=== PATIENT | female | born 1960 | race Caucasian/White ===

== ENCOUNTER → 2016-07-30 | Outpatient (CLI) | payer MEDICARE ==
[~2016-07-30] MED LIST: ALBUTEROL2.5 MG/NEB INH; CELEXA40 MG PO; GABAPENTIN 400400 MG PO; IBUPROFEN400 MG PO; LORTAB 5/3251 TAB PO; MEDROL 4MG. DOSE4 MG PO; MEGESTROL PO; NORCO 325 MG-51 TAB PO; OMEPRAZOLE40 MG PO; SYMBICORT1 AE1 IH; TIZANIDINE HCL 44 MG PO; TRAMADOL 50MG T50 M1 PO; TRAZODONE150 MG PO; WELLBUTRIN 100100 MG PO; Xanax0.25 MG PO; ZITHROMAX Z PA250 MG PO
--- NOTE | 2016-07-30 11:00 | RADIOLOGY REPORT PS360 ---
KNEE-3 VIEWS-LT HISTORY: LEFT KNEE PAIN ORDERING PHYSICIAN: Yehuda Haskins MD PATIENT AGE: 55 years COMPARISON: None FINDINGS: No fracture or dislocation. No lytic or blastic change. Normal mineralization. There is decrease in the joint space medially with mild osteophyte formation along the medial and lateral compartment. No other significant findings IMPRESSION: Mild osteoarthritis of the medial and lateral compartment of the left knee
== END ==
LOC: LAB 10:14
DX: R63.4 Abnormal weight loss (principal); M25.562 Pain in left knee

== ENCOUNTER → 2016-08-05 | Outpatient (CLI) | payer MEDICARE ==
--- NOTE | 2016-08-06 05:41 | RADIOLOGY REPORT PS360 ---
CT CHEST W/O CONTRAST HISTORY: Chest pain with obstructive chronic bronchitis and abnormal chest x-ray., Follow-up abnormal chest CT, right chest pain, rib pain ABNORMAL CXR ORDERING PHYSICIAN: Yehuda Hasknis MD PATIENT AGE: 55 years TECHNIQUE: Helical acquisition obtainedwithout contrast. Axial, sagittal, and coronal reformatted images are generated and reviewed. Three-D reformatted images also performed of the ribs COMPARISON: 01/18/1716 FINDINGS: There are severe centrilobular emphysematous changes as previously described with scattered areas of parenchymal fibrosis. No mediastinal or hilar mass evident. There is mild thickening of the pericardium anteriorly. Multiple calcified mediastinal and hilar lymph nodes are present as before as well and is calcified granulomas. Hyperinflation with attenuation of the peripheral pulmonary vessels and bronchial thickening consistent with obstructive chronic bronchitis. Peripheral parenchymal opacity is present in the right upper lobe anteriorly and medially measuring 12 x 9 mm and is somewhat more prominent probably related to ongoing pulmonary fibrotic change. Continued follow-up recommended. Best seen on image 25 series 3. Irregular pleural-based parenchymal opacity also noted in the left upper lobe anteriorly and medially also slightly more prominent. The margins of this area are slightly irregular. This measures 13 x 8 mm. Previously noted irregular parenchymal opacity in the right upper lobe laterally is unchanged No infiltrates or effusions. No displaced rib fractures. No lytic or blastic lesions. Upper abdominal images are unremarkable. There are degenerative changes in thoracic spine with mild kyphosis inferiorly unchanged. IMPRESSION: 1. Severe obstructive chronic bronchitis with emphysema and scattered areas of parenchymal scarring. 2. There are least 2 parenchymal opacities one in the in the right upper lobe and one in the left upper lobe both of which are medial and subpleural which are more prominent on today's exam probably related to ongoing pulmonary fibrotic change. PET/CT may confirm. If that is not performed then, with at least recommend a short-term CT follow-up in 3 months.
== END ==
LOC: RAD 14:15
DX: R91.8 Other nonspecific abnormal finding of lung field (principal)

== ENCOUNTER → 2016-08-14 | Outpatient (CLI) | payer MEDICARE ==
[2016-08-14 15:36] LABS: AMPHETAMINES/METAMPHETAMINES NEGATIVE ng/mL (<1000)
== END ==
LOC: LAB 13:39
PROVIDERS: Emergency Medicine
DX: Z79.899 Other long term (current) drug therapy (principal)

== ENCOUNTER → 2017-01-14 | Outpatient (CLI) | payer MEDICARE ==
[~2017-01-14] MED LIST changes: +ALPRAZOLAM0.5 MG PO; +APAP/HYDROCODON1 T10 PO; +CENTRUM SILVER1 EACH PO; +CYANOCOBAL1000 MCG/2 IJ; +ESCITALOPRAM 2020 MG PO; +KEFLEX 500MG.500 MG PO; +MEGACE LIQUI40 MG/ML PO; +PERCOCET1 TAB PO; +SEROQUEL 25MG T25 MG PO; +TYLENOL W/CODEI1 TA2 PO; +XALATAN 0.005%2.5 M1 OP
--- NOTE | 2017-01-16 05:39 | RADIOLOGY REPORT PS360 ---
MRI-L-SPINE W/O, MRI-3D RENDERING/MYELOGRAM HISTORY: Low back pain with bilateral leg pain and numbness and tingling LOW BACK PAIN ORDERING PHYSICIAN: LESLEY CURRY PATIENT AGE: 56 years COMPARISON: MRI 01/01/2016 TECHNIQUE: Standard multiplanar multiecho sequences are performed without contrast. 3-D MIP and myelographic images are also rendered and reviewed FINDINGS: There is normal alignment. Spinal cord ends at the T12-L1 level. T11-T12, T12-L1, L1-L2: Mild degenerative disc disease with some minimal endplate irregularity/Schmorl's nodes. L2-L3: Unremarkable. L3-L4: Mild facet and ligamentum flavum hypertrophy with mild bilateral lateral recess narrowing slightly greater on the right and mild bilateral foraminal narrowing along with mild bulging disc and borderline canal stenosis. L4-5: Mild bulging disc with Facet and ligamentum flavum hypertrophy with mild bilateral lateral recess narrowing and borderline canal stenosis. L5-S1: Unremarkable. No disc herniation. No significant change from the previous exam. IMPRESSION: 1. Overall no significant change and lumbar spondylosis with mild multilevel degenerative disc disease and facet and ligamentum hypertrophy and minimal bulging disc. Please see above for detailed description at each level. 2. Borderline canal stenosis at L3-L4 and L4-L5 not significantly changed 3. No disc herniation evident
== END ==
LOC: RAD 14:23
DX: M54.5 Low back pain (principal)

== ENCOUNTER → 2017-01-15 | Outpatient (CLI) | payer MEDICARE ==
[2017-01-15 11:31] LABS: AMPHETAMINES/METAMPHETAMINES NEGATIVE ng/mL (<1000)
== END ==
LOC: LAB 11:04
PROVIDERS: Emergency Medicine
DX: Z79.899 Other long term (current) drug therapy (principal)

== ENCOUNTER → 2017-01-23 | Outpatient (CLI) | payer MEDICARE ==
--- NOTE | 2017-01-23 13:47 | RADIOLOGY REPORT PS360 ---
BONE DENSITOMETRY(HIP:LT SPINE HISTORY: POST MENOPAUSAL ORDERING PHYSICIAN: Yehuda Haskins MD PATIENT AGE: 56 years COMPARISON: None FINDINGS: The BMD measured at the total left hip is 0.619 g/cm squared with a T score of -3.1. This is considered osteoporosis according to the World Health Organization criteria. Fracture risk is high. Pharmacological treatment should be initiated not already prescribed. IMPRESSION: Osteoporosis with high fracture risk. Recommend follow-up exam in one year to monitor response to treatment
== END ==
LOC: RAD 10:30
DX: Z78.0 Asymptomatic menopausal state (principal); Z13.820 Encounter for screening for osteoporosis